=== PATIENT | male | born 1970 | race Two or more races ===

== ENCOUNTER 2017-06-19 23:57 | Emergency (ER) | payer SELFPAY ==
[~2017-06-19] VITALS: Ht 170.2 cm; Wt 86.2 kg
[2017-06-20 02:45] VITALS: BP 127/88
[2017-06-20] MEDS ORDERED: IBUPROFEN 600 MG TAB PO ONE ×2 (02:45→03:30)
== END 2017-06-20 03:23 | disposition home or self-care (01) ==
LOC: ER 06-20
DX: S62.606A Fracture of unspecified phalanx of right little finger, initial encounter for closed fracture (principal); F17.210 Nicotine dependence, cigarettes, uncomplicated; Y04.0XXA Assault by unarmed brawl or fight, initial encounter; Y93.89 Activity, other specified; Y99.8 Other external cause status; Y92.89 Other specified places as the place of occurrence of the external cause
CPT/HCPCS: 29125; 73130